=== PATIENT | female | born 1960 | race Caucasian/White ===

== ENCOUNTER 2019-01-02 09:03 | Emergency (ER) | payer SELFPAY ==
[~2019-01-02] VITALS: Ht 167.6 cm; Wt 68.0 kg
[~2019-01-02 09:03] MED LIST: ALEVE220 M2 PO; GARCINIA CAMBO1 EACH PO; MULTIVITAMINS1 EAC2 ORAL; SOMA250 MG PO; Tumeric PO
[2019-01-02] MEDS ORDERED: NKM (09:12)
[2019-01-02 09:15] VITALS: BP 117/77
--- NOTE | 2019-01-02 09:17 | NUR ---
ED Nurse Note: Patient walked in to ER c/o Lt leg possible insect bites and swelling. pt reported pain level on Lt leg 7/10 and swelling on foot noted. pt aao x4 and ambulatory. skin clean and intact besides Lt lower leg. calm and cooperative.
[2019-01-02] MEDS ORDERED: Tetanus/Diptheria/Pertussis IM ONE (09:30)
[2019-01-02] MEDS ORDERED: Neosporin Oint Ud Pkt TOPIC ONE (09:30)
[2019-01-02] MEDS ORDERED: Bactrim-DS 1 tab ORAL ONE (09:30)
--- NOTE | 2019-01-02 09:34 | Emergency Room Report ---
History of Present Illness General Chief Complaint: Skin Rash/Abscess Source: Patient Present Illness HPI Presents with several bites to the left lower leg with swelling and pain. She is been applying hydrocortisone cream. She is uncertain when her last tetanus shot was. She reacts to bites frequently and seems to be the only bitten in her family. She denies family history or history and herself of diabetes. She is recently had significant weight loss. She denies any calf tenderness or thigh tenderness. There is no hemoptysis or dyspnea or chest pain. No fevers or chills. There is swelling in the ankle on that side. No numbness. She has not seen a physician for several years. Allergies: Coded Allergies: No Known Allergies (Unverified , 01/02/19) Patient History Past Medical History: see triage record Past Surgical History: other - Breast reduction Social History: Reports: smoking Social History Narrative Desk job Reviewed Nursing Documentation: PMH: Agreed; PSxH: Agreed Nursing Documentation-PMH Past Medical History: No Stated History Hx Cardiac Problems: No Hx Cancer: No Hx Gastrointestinal Problems: No Hx Neurological Problems: No Hx Numbness: Yes - bilateral hands intermittent Review of Systems Constitutional: Reports: see HPI Respiratory: Reports: see HPI Cardiovascular: Reports: see HPI Musculoskeletal: Reports: see HPI Skin: Reports: see HPI Neurological: Reports: see HPI Hematologic/Lymphatic: Denies: blood clots Physical Exam Vital Signs Date Time Temp Pulse Resp B/P (MAP) Pulse Ox O2 Delivery O2 Flow Rate FiO2 01/02/19 09:08 98.6 71 16 117/77 (90) 96 Room Air Sp02 EP Interpretation: reviewed, normal General Appearance: well appearing, no apparent distress, GCS 15 Head: normocephalic Eyes: bilateral eye normal inspection, bilateral eye PERRL ENT: moist mucus membranes Neck: full range of motion Respiratory: lungs clear, normal breath sounds, speaking full sentences Cardiovascular #1: regular rate, rhythm, edema - Left lower extremity Cardiovascular #2: 2+ radial (R), 2+ dorsalis pedis (L) Gastrointestinal: normal inspection Musculoskeletal: gait/station normal, no calf tenderness Neurologic: alert, grossly normal Psychiatric: mood/affect normal Skin: other - 5 or 6 areas of excoriations with some erythema surrounding left ankle Medical Decision Making Diagnostic Impression: Primary Impression: Cellulitis of left lower leg Additional Impression: Bug bites Qualified Codes: W57.XXXA - Bitten or stung by nonvenomous insect and other nonvenomous arthropods, initial encounter ER Course Patient presents with multiple bites and swelling to the left lower leg. Differential includes cellulitis, bite reaction, DVT amongst others. The patient has no cords calf pain and a negative Homans and therefore DVT is less likely. Antibiotics, tetanus, Benadryl and pain medication are all indicated. Discussed treatment plan with patient. Also advised the importance of finding her own physician. Advised to return if increased calf pain shortness of breath or chest pain. Patient stable for outpatient observation and treatment. Last Vital Signs Date Time Temp Pulse Resp B/P (MAP) Pulse Ox O2 Delivery O2 Flow Rate FiO2 01/02/19 10:10 98.6 72 16 117/77 96 Room Air Status: improved Disposition: HOME, SELF-CARE Condition: Improved Scripts Diphenhydramine Hcl* (BENADRYL*) 25 Mg Capsule 25 MG ORAL Q6H PRN for Itching, #20 CAP Prov: Gt Marquez MD 01/02/19 Ibuprofen* (MOTRIN*) 600 Mg Tablet 600 MG ORAL Q6H PRN for For Pain, #20 TAB 0 Refills Prov: Gt Marquez MD 01/02/19 Bacitracin (Bacitracin) 28.4 Gm Oint...g. 1 APPLIC TOPIC THREE TIMES A DAY, #20 GM Prov: Gt Marquez MD 01/02/19 Trimethoprim/Sulfamethoxazole 160/800* (BACTRIM DS TABLET*) 1 Each Tablet 1 TAB ORAL Q12H, #14 TAB 0 Refills Prov: Gt Marquez MD 01/02/19 Gt Marquez MD Jan 02, 2019 09:34
[2019-01-02] MEDS ORDERED: BACTRIM DS TAB1 EAC1 ORAL (10:03)
[2019-01-02] MEDS ORDERED: IBUPROFEN600 MG ORAL (10:03)
[2019-01-02] MEDS ORDERED: BACITRACIN15 GM TOPIC (10:03)
[2019-01-02] MEDS ORDERED: BENADRYL25 MG ORAL (10:07)
[2019-01-02 10:10] VITALS: BP 117/77
--- NOTE | 2019-01-02 10:10 | NUR ---
ER DISCHARGE NOTE: Patient is cleared to be discharged per ERMD, pt is aox4, on room air, with stable vital signs. pt was given dc and prescription instructions, pt was able to verbalize understanding, pt id band removed. pt is able to ambulate with steady gait. pt took all belongings.
== END 2019-01-02 10:10 | disposition home or self-care (01) ==
LOC: EMR 09:51
DX: L03.116 Cellulitis of left lower limb (principal); S80.862A Insect bite (nonvenomous), left lower leg, initial encounter; W57.XXXA Bitten or stung by nonvenomous insect and other nonvenomous arthropods, initial encounter; Y92.9 Unspecified place or not applicable; Z23 Encounter for immunization
CPT/HCPCS: 90471; 90715; 99283